=== PATIENT | male | born 1940 | race Two or more races ===

== ENCOUNTER → 2016-10-24 | Outpatient (CLI) | payer MEDICARE ==
[2016-10-24 10:11] LABS: ALANINE AMINOTRANSFERASE 28 U/L (21-72); ALBUMIN 4.5 g/dL (3.5-5.0); ALKALINE PHOSPHATASE 66 U/L (38-126); ANION GAP 15 (5-19); ASPARTATE AMINO TRANSFERASE 23 U/L (17-59); BILIRUBIN,DIRECT 0.3 mg/dL (0.0-0.4); BILIRUBIN,TOTAL 1.3 mg/dL (0.2-1.3); BLOOD UREA NITROGEN 29 mg/dL (7-20); CALCIUM 9.3 mg/dL (8.4-10.2); CARBON DIOXIDE 23 mmol/L (22-30); CHLORIDE 107 mmol/L (98-107); CHOLESTEROL 141.28 mg/dL (0-200); CREATININE RESULT 1.31 mg/dL (0.52-1.25); Direct HDL 37 mg/dL (>40); GLUCOSE 88 mg/dL (75-110); MAGNESIUM 2.2 mg/dL (1.6-2.3); SODIUM 144.8 mmol/L (137-145); TOTAL PROTEIN 8.1 g/dL (6.3-8.2); TRIGLYCERIDES 280 mg/dL (<150)
[2016-10-24 10:22] LABS: DIRECT LDL 31 mg/dL (<100)
== END ==
LOC: OD 08:25
PROVIDERS: ATTEND Internal Medicine Cardiovascular Disease
DX: E78.2 Mixed hyperlipidemia (principal); R68.2 Dry mouth, unspecified
CPT/HCPCS: 36415; 80048; 80061; 80076; 83036; 83735

== ENCOUNTER 2016-12-15 22:37 | Emergency (ER) | payer MEDICARE ==
[2016-12-16] MEDS ORDERED: LIDOCAINE 2% URO-JET 5 ML KIT MM ONE (00:16)
--- NOTE | 2016-12-16 00:18 | ER Document Report ---
ED GI/ - General Chief Complaint: Urinary Problem Stated Complaint: URINARY PROBLEM Time Seen by Provider: 12/16/16 00:07 Mode of Arrival: Ambulatory Information source: Patient TRAVEL OUTSIDE OF THE [place] IN LAST 30 DAYS: No - HPI Patient complains to provider of: Urinary retention Onset: Yesterday Timing/Duration: Persistent Quality of pain: Fullness, Pressure Severity at maximum: Moderate Severity in ED: Moderate Pain Level: 3 Location: Suprapubic Associated symptoms: Dysuria Exacerbated by: Denies Relieved by: Denies Similar symptoms previously: Yes Recently seen / treated by doctor: No Notes: 12/16/16 00:17 Patient is a 76-year-old male who presents to the emergency room complaining of urinary retention since yesterday evening, with dysuria prior to that, he denies any fever or chills, no nausea vomiting or diarrhea, does report a small but normal bowel movement earlier today, reports a history of kidney stones and enlarged prostate with urinary retention at least one time prior - Related Data Allergies/Adverse Reactions: No Known Allergies Allergy (Unverified 12/15/16 23:52) Past Medical History - General Information source: Patient - Social History Smoking Status: Unknown if Ever Smoked Family History: Reviewed & Not Pertinent Patient has suicidal ideation: No Patient has homicidal ideation: No Renal/ Medical History: Denies: Hx Peritoneal Dialysis Review of Systems - Review of Systems Constitutional: No symptoms reported EENT: No symptoms reported Cardiovascular: No symptoms reported Respiratory: No symptoms reported Gastrointestinal: No symptoms reported Genitourinary: See HPI Male Genitourinary: No symptoms reported Musculoskeletal: No symptoms reported Skin: No symptoms reported Hematologic/Lymphatic: No symptoms reported Neurological/Psychological: No symptoms reported -: Yes All other systems reviewed and negative Physical Exam - Vital signs Vitals: Temp Pulse Resp BP Pulse Ox 97.6 F 80 18 177/91 H 99 12/15/16 23:48 12/15/16 23:48 12/15/16 23:48 12/15/16 23:48 12/15/16 23:48 Interpretation: Hypertensive - General General appearance: Appears well, Alert - HEENT Head: Normocephalic, Atraumatic Eyes: Normal Pupils: PERRL - Respiratory Respiratory status: No respiratory distress Chest status: Nontender Breath sounds: Normal Chest palpation: Normal - Cardiovascular Rhythm: Regular Heart sounds: Normal auscultation Murmur: No - Abdominal Inspection: Normal Distension: No distension Bowel sounds: Normal Tenderness: Tender - Suprapubic fullness and tenderness Organomegaly: No organomegaly - Back Back: Normal, Nontender - Extremities General upper extremity: Normal inspection, Nontender, Normal color, Normal ROM , Normal temperature General lower extremity: Normal inspection, Nontender, Normal color, Normal ROM , Normal temperature, Normal weight bearing. No: Magnolia's sign - Neurological Neuro grossly intact: Yes Cognition: Normal Orientation: AAOx4 Sarkis Coma Scale Eye Opening: Spontaneous White Coma Scale Verbal: Oriented Sarkis Coma Scale Motor: Obeys Commands Sarkis Coma Scale Total: 15 Speech: Normal Motor strength normal: LUE, RUE, LLE, RLE Sensory: Normal - Psychological Associated symptoms: Normal affect, Normal mood - Skin Skin Temperature: Warm Skin Moisture: Dry Skin Color: Normal Course - Re-evaluation Re-evalutation: 12/16/16 01:42 Lab and imaging findings were discussed with patient and family members at bedside, his granddaughter at bedside translated as patient is Pashto speaking , he was given the opportunity to ask questions, patient was advised to follow- up for further evaluation and treatment of lesion noted on the kidney, bony lesions and enlarged prostate which could be concerning for neoplasm, patient will be discharged home with Hannah catheter in place as well as instructions for follow-up and advised to return if symptoms worsen, patient and family members at bedside acknowledge understanding and agreement with this plan - Vital Signs Vital signs: Temp Pulse Resp BP Pulse Ox 97.6 F 80 18 177/91 H 99 12/15/16 23:48 12/15/16 23:48 12/15/16 23:48 12/15/16 23:48 12/15/16 23:48 - Laboratory Result Diagrams: 12/16/16 01:04 12/16/16 01:04 Laboratory results interpreted by me: 12/16/16 12/16/16 12/16/16 01:04 01:04 01:04 RDW 14.1 H BUN 25 H Total Protein 8.8 H Urine Blood SMALL H - Diagnostic Test Radiology reviewed: Image reviewed, Reports reviewed Discharge - Discharge Clinical Impression: Urinary retention, Prostate enlargement, Renal mass, Bone lesion Condition: Stable Disposition: HOME, SELF-CARE Instructions: Growth or Mass, Pending Workup ([facility]), Urinary Retention ([facility]), Hannah Catheter Care ([facility]) Additional Instructions: Follow up with your primary care provider, urologist and oncologist in one to 2 days. Return to the emergency room immediately if symptoms worsen or any additional concerns. Referrals: PRIYA BERMAN MD [Primary Care Provider] - Follow up as needed VANESSA TAO MD [ACTIVE STAFF] - Follow up as needed JESUS SHARIF MD [NO LOCAL MD] - Follow up as needed
[2016-12-16 01:17] LABS: ABSOLUTE LYMPHOCYTES (AUTO) 1.2 10^3/uL (0.5-4.7); ABSOLUTE MONOCYTES (AUTO) 0.6 10^3/uL (0.1-1.4); ABSOLUTE NEUT (AUTO) 5.6 10^3/uL (1.7-8.2); BASOPHILS % (AUTO) 0.5 % (0-2); EOSINOPHILS % (AUTO) 0.5 % (0-6); HEMATOCRIT 41.8 % (37.9-51.0); HEMOGLOBIN 13.9 g/dL (13.5-17.0); HGB HCT DIFFERENCE -0.1; LYMPHOCYTES % (AUTO) 16.6 % (13-45); MEAN CORPUSCULAR HEMOGLOBIN 29.6 pg (27.0-33.4); MEAN CORPUSCULAR HGB CONC 33.3 g/dL (32.0-36.0); MEAN CORPUSCULAR VOLUME 89 fl (80-97); RED BLOOD COUNT 4.71 10^6/uL (4.35-5.55); RED CELL DISTRIBUTION WIDTH 14.1 % (11.5-14.0); SEGMENTED NEUTROPHILS % (AUTO) 74.4 % (42-78); WHITE BLOOD COUNT 7.5 10^3/uL (4.0-10.5)
[2016-12-16 01:23] LABS: APPEARANCE,URINE CLEAR; BILIRUBIN,URINE NEGATIVE (NEGATIVE); GLUCOSE, URINE NEGATIVE (NEGATIVE); KETONES,URINE NEGATIVE (NEGATIVE); LEUKOCYTE ESTERASE,URINE NEGATIVE (NEGATIVE); NITRITE,URINE NEGATIVE (NEGATIVE); PROTEIN,URINE NEGATIVE (NEGATIVE); URINE SPECIFIC GRAVITY 1.008; UROBILINOGEN,URINE NEGATIVE mg/dL (<2.0)
[2016-12-16 01:34] LABS: ALANINE AMINOTRANSFERASE 34 U/L (21-72); ALBUMIN 4.8 g/dL (3.5-5.0); ALKALINE PHOSPHATASE 66 U/L (38-126); ANION GAP 12 (5-19); ASPARTATE AMINO TRANSFERASE 26 U/L (17-59); BILIRUBIN,DIRECT 0.4 mg/dL (0.0-0.4); BILIRUBIN,TOTAL 1.2 mg/dL (0.2-1.3); BLOOD UREA NITROGEN 25 mg/dL (7-20); CALCIUM 9.3 mg/dL (8.4-10.2); CARBON DIOXIDE 23 mmol/L (22-30); CHLORIDE 102 mmol/L (98-107); CREATININE RESULT 1.18 mg/dL (0.52-1.25); GLUCOSE 102 mg/dL (75-110); POTASSIUM 4.5 mmol/L (3.6-5.0); SODIUM 137.3 mmol/L (137-145); TOTAL PROTEIN 8.8 g/dL (6.3-8.2)
[2016-12-16 05:03] VITALS: BP 159/83
== END 2016-12-16 01:45 | disposition home or self-care (01) ==
LOC: ER 22:37
DX: R33.9 Retention of urine, unspecified (principal); N40.0 Benign prostatic hyperplasia without lower urinary tract symptoms; N28.89 Other specified disorders of kidney and ureter; M89.9 Disorder of bone, unspecified; R30.0 Dysuria; Z87.442 Personal history of urinary calculi
CPT/HCPCS: 99284; 51702; 36415; 87086; 85025; 80053; 81001; 76380; A9270; J3490

== ENCOUNTER → 2016-12-27 | Outpatient (CLI) | payer MEDICARE ==
--- NOTE | 2016-12-27 14:46 | RADIOLOGY REPORT (SQ) ---
EXAM DESCRIPTION: NM WHOLE BODY BONE SCAN COMPLETED DATE/TIME: 12/27/2016 1:32 pm REASON FOR STUDY: RENAL CANCER D41.02 NEOPLASM OF UNCERTAIN BEHAVIOR OF LEFT KIDNEY COMPARISON: CT abdomen and pelvis 12/16/2016. RADIONUCLIDE AND DOSE: 21.5 millicuries Tc99m MDP. The route of agent administration: Intravenous. ADDITIONAL DRUGS AND DOSES: None. TECHNIQUE: Routine delayed images at 3 hour post radionuclide injection acquired of the bony skeleto n including anterior and posterior whole-body projections and additional focused images as needed. LIMITATIONS: None. FINDINGS: BONES: Focal uptake in the posterior midline skull vertex, indeterminate. Minimal uptake at the right sternoclavicular joint, likely degenerative. Right 7th posterolateral rib subtle focal uptake, indeterminate. No corresponding abnormality identified on the recent CT. Possibly artifact. KIDNEYS: Symmetric excretion without obstruction. OTHER: No other significant finding. IMPRESSION: 1. Indeterminate midline skull vertex bone turnover. Solitary skull metastatic focus ca nnot be excluded, however. 2. Solitary right rib focus. This looks like the 7th rib. No abnormali ty seen on CT, possibly artifact. COMMENT: PQRS 3570F: Current bone scan is compared with any available plain radiographs, prior bone scans, and CT/MRI. TECHNICAL DOCUMENTATION: JOB ID: [id number] [employer]- All Rights Reserved
== END ==
LOC: RAD 09:01
PROVIDERS: ATTEND Urology
DX: D41.02 Neoplasm of uncertain behavior of left kidney (principal)
CPT/HCPCS: 78306; A9561; Q9969

== ENCOUNTER 2016-12-28 19:40 | Emergency (ER) | payer MEDICARE ==
[2016-12-28 21:30] LABS: APPEARANCE,URINE SLIGHTLY-CLOUDY; BILIRUBIN,URINE NEGATIVE (NEGATIVE); GLUCOSE, URINE NEGATIVE (NEGATIVE); KETONES,URINE NEGATIVE (NEGATIVE); LEUKOCYTE ESTERASE,URINE SMALL (NEGATIVE); NITRITE,URINE NEGATIVE (NEGATIVE); PROTEIN,URINE NEGATIVE (NEGATIVE); URINE SPECIFIC GRAVITY 1.003; UROBILINOGEN,URINE NEGATIVE mg/dL (<2.0)
--- NOTE | 2016-12-28 21:31 | ER Document Report ---
ED Medical Screen (RME) - General Chief Complaint: Urinary Retention Stated Complaint: DIFFICULTY URINATING Time Seen by Provider: 12/28/16 21:29 Notes: Patient is a 76-year-old male presents emergency department complaining of urinary retention, painful urination, urgency and hesitancy. Patient was evaluated in the emergency department about 2 weeks ago had a Hannah placed was discharged and instructed to follow-up with urology. His daughter is translating for him states that he had his Hannah removed earlier today by Dr. Esteban. She states that they then returned to have a bladder scan done in 5-80 ounces of fluid in his bladder. They were told by Dr. Esteban's office if he has difficulty urinating to come to the emergency department. Daughter translating for her father and she states that he has been urinating but very little at a time and has discomfort. Denies any fevers, chills, pyuria. Patient was initially triaged as a yellow due to elevated blood pressure. No repeat pressure was taken upon triage. Patient blood pressure now is 169/87. Patient denies any chest pain, headache. I have greeted and performed a rapid initial assessment of this patient. A comprehensive ED assessment and evaluation of the patient, analysis of test results and completion of the medical decision making process will be conducted by additional ED providers. TRAVEL OUTSIDE OF THE [place] IN LAST 30 DAYS: No - Related Data Allergies/Adverse Reactions: No Known Allergies Allergy (Unverified 12/15/16 23:52) Past Medical History Renal/ Medical History: Denies: Hx Peritoneal Dialysis Physical Exam - Vital signs Vitals: Temp Pulse Resp BP Pulse Ox 98.1 F 114 H 20 231/114 H 98 12/28/16 20:26 12/28/16 20:26 12/28/16 20:26 12/28/16 20:26 12/28/16 20:26 Course - Vital Signs Vital signs: Temp Pulse Resp BP Pulse Ox 98.1 F 114 H 20 231/114 H 98 12/28/16 20:26 12/28/16 20:26 12/28/16 20:26 12/28/16 20:26 12/28/16 20:26
[2016-12-29] MEDS ORDERED: CIPROFLOXACIN HCL 500 MG TABLET PO ONE (00:16)
--- NOTE | 2016-12-29 00:16 | ER Document Report ---
ED General - General Chief Complaint: Urinary Retention Stated Complaint: DIFFICULTY URINATING Time Seen by Provider: 12/28/16 21:29 Mode of Arrival: Ambulatory Information source: Patient, Relative TRAVEL OUTSIDE OF THE [place] IN LAST 30 DAYS: No - HPI Notes: Patient is a 76-year-old male presents emergency department complaining of urinary retention, painful urination, urgency and hesitancy. Patient was evaluated in the emergency department about 2 weeks ago had a Hannah placed was discharged and instructed to follow-up with urology. Time patient was diagnosed by CT scan with a 2.1 cm left renal lesion possible for neoplasm. Patient also had a 5.6 cm diameter enlarged prostate. He had normal lab studies with CBC and chemistries done at that time. His daughter is translating for him states that he had his Hannha removed earlier today by Dr. Esteban. She states that they then returned to have a bladder scan done in which showed 8 ounces of fluid in his bladder. They were told by Dr. Esteban's office if he has difficulty urinating to come to the emergency department. Daughter translating for her father and she states that he has been urinating but very little at a time and has discomfort. Denies any fevers, chills, pyuria. Patient gets occasional back pain when he has the urinary retention, but after straight cath removed 420 cc of urine in his pain was resolved. Initial blood pressure was 231/114, with a repeat blood pressure improved to 163 /89 after catheter removal of urine. - Related Data Allergies/Adverse Reactions: No Known Allergies Allergy (Unverified 12/15/16 23:52) Past Medical History - General Information source: Patient - Social History Smoking Status: Never Smoker Chew tobacco use (# tins/day): No Frequency of alcohol use: None Drug Abuse: None Lives with: Family Family History: Reviewed & Not Pertinent Patient has suicidal ideation: No Patient has homicidal ideation: No Renal/ Medical History: Denies: Hx Peritoneal Dialysis Review of Systems - Review of Systems Notes: REVIEW OF SYSTEMS: CONSTITUTIONAL : Denies fever, chills, or sweats. Denies recent illness. EENT: Denies eye, ear, throat, or mouth pain or symptoms. Denies nasal or sinus congestion or discharge. Denies throat, tongue, or mouth swelling or difficulty swallowing. CARDIOVASCULAR: Denies chest pain. Denies palpitations or racing or irregular heart beat. Denies ankle edema. RESPIRATORY: Denies cough, cold, or chest congestion. Denies shortness of breath, difficulty breathing, or wheezing. GASTROINTESTINAL: Denies abdominal pain or distention. Denies nausea, vomiting , or diarrhea. Denies blood in vomitus, stools, or per rectum. Denies black, tarry stools. Denies constipation. GENITOURINARY: Denies painful urination, burning, frequency, or discharge. Minimal bleeding noted after catheter removal. MUSCULOSKELETAL: Denies neck pain or stiffness. Denies joint pain or swelling. Denies current back pain after urine removal. SKIN: Denies rash, lesions or sores. HEMATOLOGIC : Denies easy bruising or bleeding. LYMPHATIC: Denies swollen, enlarged glands. NEUROLOGICAL: Denies confusion or altered mental status. Denies passing out or loss of consciousness. Denies dizziness or lightheadedness. Denies headache. Denies weakness or paralysis or loss of use of either side. Denies problems with gait or speech. Denies sensory loss, numbness, or tingling. Denies seizures. PSYCHIATRIC: Denies anxiety or stress. Denies depression, suicidal ideation, or homicidal ideation. ALL OTHER SYSTEMS REVIEWED AND NEGATIVE. Dictation was performed using [employer] voice recognition software Physical Exam - Vital signs Vitals: Temp Pulse Resp BP Pulse Ox 98.1 F 114 H 20 231/114 H 98 12/28/16 20:26 12/28/16 20:26 12/28/16 20:26 12/28/16 20:26 12/28/16 20:26 - Notes Notes: PHYSICAL EXAMINATION: GENERAL: Well-appearing, well-nourished and in no acute distress. HEAD: Atraumatic, normocephalic. EYES: Pupils equal round and reactive to light, extraocular movements intact, sclera anicteric, conjunctiva are normal. ENT: Nares patent, oropharynx clear without exudates. Moist mucous membranes. NECK: Normal range of motion, supple without lymphadenopathy LUNGS: Breath sounds clear to auscultation bilaterally and equal. No wheezes rales or rhonchi. HEART: Regular rate and rhythm without murmurs ABDOMEN: Soft, nontender, nondistended abdomen. No guarding, no rebound. No masses appreciated. Note that this exam was performed after the 420 cc of urine was removed. Musculoskeletal: Normal range of motion, no pitting or edema. No cyanosis. No CVA tenderness. NEUROLOGICAL: Cranial nerves grossly intact. Normal speech, normal gait. Normal sensory, motor exams PSYCH: Normal mood, normal affect. SKIN: Warm, Dry, normal turgor, no rashes or lesions noted. Genitourinary exam: Patient has minimal amount of blood mixed urine the urethral meatus. No inguinal pain or mass, no testicular pain or mass. Course - Re-evaluation Re-evalutation: 12/29/16 00:14 Patient had Hannah catheter with leg bag placed given that the bladder scan showed 458 cc of urine. Patient is already taking Flomax at the current time. He will continue this. Patient will follow up next week with Dr. Esteban for reevaluation and possible catheter removal. Instructions given to the family and patient regarding possible catheter removal at home at midnight prior to a morning follow-up appointment with urology. There is mild evidence for UTI. Urine cultures taken, and the patient will be placed on Cipro. 12/29/16 00:21 - Vital Signs Vital signs: Temp Pulse Resp BP Pulse Ox 98.1 F 114 H 20 231/114 H 98 12/28/16 20:26 12/28/16 20:26 12/28/16 20:26 12/28/16 20:26 12/28/16 20:26 - Laboratory Laboratory results interpreted by me: 12/28/16 20:38 Urine Blood MODERATE H Ur Leukocyte Esterase SMALL H Discharge - Discharge Clinical Impression: Urinary retention due to benign prostatic hyperplasia Urinary tract infection Qualifiers: Urinary tract infection type: acute cystitis Hematuria presence: without hematuria Qualified Code(s): N30.00 - Acute cystitis without hematuria Clinical Impression: (Ruled Out): Retention of urine Condition: Stable Disposition: HOME, SELF-CARE Instructions: Urinary Tract Infection ([facility]) Additional Instructions: Urinary Retention Urinary retention is inability to empty the bladder. It can result from a urine infection, or from mechanical problems such as an enlarged prostate gland or swelling of the urethra. Drugs or alcohol can also lead to urine retention. The condition is usually treated by passage of a catheter. If the physician thinks the problem will continue, the catheter may be left in place for a few days. Sometimes drugs are used to stimulate the bladder if the physician feels that inadequate bladder contraction is the cause. If the condition leading to the retention is a chronic one, such as an enlarged prostate, you will be referred to a specialist for further care. Call the physician or return if you develop fever, flank or back pain, pain on urination, or recurrent difficulty passing the urine. Follow-up with Dr. Esteban next week to have catheter removed and reevaluation. Continue taking the tamsulosin. Return to the ED in case of fever, severe back pain or vomiting. Prescriptions: Ciprofloxacin HCl [Cipro 250 mg Tablet] 1 tab PO BID #14 tab Referrals: ROSHAN ESTEBAN MD [NO LOCAL MD] - Follow up as needed
[2016-12-29 00:56] VITALS: BP 157/87
== END 2016-12-29 00:54 | disposition home or self-care (01) ==
LOC: ER 19:40
DX: N30.00 Acute cystitis without hematuria (principal); R33.9 Retention of urine, unspecified
CPT/HCPCS: 99283; 51702; 87086; 81001; A9270

== ENCOUNTER → 2017-02-25 | Outpatient (CLI) | payer MEDICARE ==
--- NOTE | 2017-02-26 10:03 | RADIOLOGY REPORT (SQ) ---
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 Bone scan dated 12/27/2016. RADIONUCLIDE AND DOSE: 12.0 mCi F18 FDG The route of agent administration: Intravenous FASTING BLOOD SUGAR: 81 mg/dl CONTRAST TYPE AND DOSE: No CT contrast given. TECHNIQUE: Blood glucose level was verified. Above dose of FDG was injected intravenously. 2-D seg mented attenuation correction images were obtained from the base of the skull to the midthighs. Nonc ontrast CT images were obtained for attenuation correction and fusion with emission images. CT image s were performed without oral or intravenous contrast and are not sensitive for parenchymal lesions. A series of overlapping emission PET images were obtained. Images reviewed and manipulated at [facility] work station by the radiologist. Images stored on PACS. LIMITATIONS: None. FINDINGS: HEAD AND NECK: No areas of abnormal metabolic activity in the soft tissues of the head and neck. CHEST: No areas of abnormal metabolic activity in the chest. Calcified granuloma on the right with c alcified right hilar lymph nodes. ABDOMEN AND PELVIS: No areas of abnormal metabolic activity in the abdomen or pelvis. 2 cm exophytic mass on the cortex of the left kidney. Average Hounsfield units 51. No abnormal metabolic activity . Mean SUV value 0.3. Expected physiologic activity is present in the genitourinary system and ayo l. PROXIMAL LOWER EXTREMITIES: No areas of abnormal metabolic activity in the soft tissues of the lower extremities. BONES: Degenerative changes in the spine. A few small subcentimeter sclerotic vertebral lesions and right iliac lesion. No abnormal metabolic activity in the visualized skeleton. ADDITIONAL CT FINDINGS: No additional significant findings on the noncontrast CT images. OTHER: No other significant findings. IMPRESSION: 1. UNREMARKABLE PET SCAN. NO HYPERMETABOLIC LESIONS. 2. 2 CM EXOPHYTIC MASS ON THE CORTEX OF THE LEFT KIDNEY WITH INTERMEDIATE HOUNSFIELD UNITS AND NO ACT IVITY ON PET IMAGING. FURTHER EVALUATION WITH MRI MAY BE HELPFUL TO BETTER CHARACTERIZE THIS LESION. 3. DEGENERATIVE CHANGES IN THE SPINE WITH A FEW SMALL SUBCENTIMETER SCLEROTIC BONY LESIONS, NOT METAB OLIC. TECHNICAL DOCUMENTATION: JOB ID: [id number]- All Rights Reserved
== END ==
LOC: RAD 18:53
PROVIDERS: ATTEND Internal Medicine
DX: C64.2 Malignant neoplasm of left kidney, except renal pelvis (principal)
CPT/HCPCS: 78815; A9552

== ENCOUNTER → 2017-12-14 | Outpatient (CLI) | payer MEDICARE ==
[2017-12-14 08:37] LABS: ALANINE AMINOTRANSFERASE 31 U/L (21-72); ALBUMIN 4.6 g/dL (3.5-5.0); ALKALINE PHOSPHATASE 64 U/L (38-126); ANION GAP 11 (5-19); ASPARTATE AMINO TRANSFERASE 22 U/L (17-59); BILIRUBIN,DIRECT 0.3 mg/dL (0.0-0.4); BILIRUBIN,TOTAL 0.9 mg/dL (0.2-1.3); BLOOD UREA NITROGEN 23 mg/dL (7-20); CALCIUM 9.5 mg/dL (8.4-10.2); CARBON DIOXIDE 27 mmol/L (22-30); CHLORIDE 107 mmol/L (98-107); CHOLESTEROL 148.97 mg/dL (0-200); GLUCOSE 96 mg/dL (75-110); POTASSIUM 4.9 mmol/L (3.6-5.0); SODIUM 145.1 mmol/L (137-145); TOTAL PROTEIN 8.1 g/dL (6.3-8.2); TRIGLYCERIDES 352 mg/dL (<150)
[2017-12-14 08:49] LABS: DIRECT LDL < 30 mg/dL (<100); VLDL CHOLESTEROL 70.4 mg/dL (10-31)
== END ==
LOC: OD 07:12
PROVIDERS: ATTEND Internal Medicine Cardiovascular Disease
DX: E78.00 Pure hypercholesterolemia, unspecified (principal); I10 Essential (primary) hypertension; Z79.899 Other long term (current) drug therapy
CPT/HCPCS: 36415; 80048; 80061; 80076; 83735

== ENCOUNTER → 2018-07-04 | Outpatient (CLI) | payer MEDICARE, MEDICAID ==
[2018-07-04 10:19] LABS: ANION GAP 15 (5-19); BLOOD UREA NITROGEN 24 mg/dL (7-20); CALCIUM 9.5 mg/dL (8.4-10.2); CARBON DIOXIDE 26 mmol/L (22-30); CHLORIDE 105 mmol/L (98-107); CHOLESTEROL 132.77 mg/dL (0-200); GLUCOSE 95 mg/dL (75-110); POTASSIUM 5.1 mmol/L (3.6-5.0); SODIUM 145.9 mmol/L (137-145); TRIGLYCERIDES 287 mg/dL (<150)
[2018-07-04 10:30] LABS: DIRECT LDL 42 mg/dL (<100)
[2018-07-04 10:53] LABS: VLDL CHOLESTEROL 57.4 mg/dL (10-31)
== END ==
LOC: OD 08:35
PROVIDERS: ATTEND Internal Medicine Cardiovascular Disease
DX: E78.2 Mixed hyperlipidemia (principal); I10 Essential (primary) hypertension; R97.20 Elevated prostate specific antigen [PSA]; Z79.899 Other long term (current) drug therapy
CPT/HCPCS: 36415; 80048; 80061; 84153

== ENCOUNTER → 2019-01-20 | Outpatient (CLI) | payer MEDICARE, MEDICAID ==
[2019-01-20 09:31] LABS: ANION GAP 13 (5-19); BLOOD UREA NITROGEN 40 mg/dL (7-20); CALCIUM 8.9 mg/dL (8.4-10.2); CARBON DIOXIDE 23 mmol/L (22-30); CHLORIDE 106 mmol/L (98-107); CHOLESTEROL 159.03 mg/dL (0-200); GLUCOSE 85 mg/dL (75-110); POTASSIUM 4.7 mmol/L (3.6-5.0); SODIUM 141.6 mmol/L (137-145); TRIGLYCERIDES 355 mg/dL (<150)
[2019-01-20 09:42] LABS: DIRECT LDL 35 mg/dL (<100)
== END ==
LOC: OD 07:47
PROVIDERS: ATTEND Internal Medicine Cardiovascular Disease
DX: E78.2 Mixed hyperlipidemia (principal); I10 Essential (primary) hypertension; Z79.899 Other long term (current) drug therapy
CPT/HCPCS: 36415; 80048; 80061; 83735

== ENCOUNTER → 2019-01-31 | Outpatient (CLI) | payer MEDICARE, MEDICAID ==
[2019-01-31 09:29] LABS: ANION GAP 9 (5-19); BLOOD UREA NITROGEN 32 mg/dL (7-20); CALCIUM 9.2 mg/dL (8.4-10.2); CARBON DIOXIDE 24 mmol/L (22-30); CHLORIDE 107 mmol/L (98-107); GLUCOSE 89 mg/dL (75-110); POTASSIUM 4.8 mmol/L (3.6-5.0); SODIUM 139.6 mmol/L (137-145)
== END ==
LOC: OD 07:52
PROVIDERS: ATTEND Internal Medicine Cardiovascular Disease
DX: N18.3 Chronic kidney disease, stage 3 (moderate) (principal)
CPT/HCPCS: 36415; 80048